=== PATIENT | male | born 1995 | race Caucasian/White ===

== ENCOUNTER 2017-11-18 15:00 | Emergency (ER) | payer SELFPAY ==
[2017-11-18 15:36] VITALS: BP 136/83; PULSE 71; TEMP 99; BMI 42.0
--- NOTE | 2017-11-18 15:46 | PDOC ---
History of Present Illness - General History Source: Patient Exam Limitations: No Limitations - History of Present Illness Initial Comments: 11/18/17 16:06 The patient is a 22 year old male, with no significant past medical history, who presents to the emergency department with lower back pain s/p mechanical fall yesterday. Patient reports he was walking outside yesterday, when he slipped on ice, and landed on his buttocks. Since the incident patient reports associated pain and bruising to the buttocks and left lower back. Patient reports he has been ambulating at baseline since fall. He denies any head trauma , LOC, changes in vision, headache, neck pain, dizziness, numbness or tingling. Patient reports difficulty sleeping secondary to pain. Patient has been taking Tylenol for the pain with minimal relief. He denies any flank pain, dysuria, hematuria, frequency, urgency, or urinary incontinence. He denies any abdominal pain, nausea, or vomiting. He denies any fever or chills. Allergies: NKDA Past Surgical History: None reported. Social History: Current everyday smoker. No ETOH or recreational drug use. <Ana David - Last Filed: 11/18/17 16:06> <Van Person - Last Filed: 11/18/17 17:06> - General Chief Complaint: Back Pain Stated Complaint: FELL Time Seen by Provider: 11/18/17 15:45 Past History <Ana David - Last Filed: 11/18/17 16:06> - Past Medical History COPD: No - Suicide/Smoking/Psychosocial Hx Smoking History: Current every day smoker Have you smoked in the past 12 months: Yes Number of Cigarettes Smoked Daily: 10 Information on smoking cessation initiated: Yes 'Breaking Loose' booklet given: 04/13/15 Hx Alcohol Use: Yes (OCCASIONAL) Drug/Substance Use Hx: No Substance Use Type: Alcohol <Van Person - Last Filed: 11/18/17 17:06> - Past Medical History Allergies/Adverse Reactions: Allergies Allergy/AdvReac Type Severity Reaction Status Date / Time No Known Allergies Allergy Verified 11/18/17 15:24 Home Medications: Ambulatory Orders NK [No Known Home Medication] 04/13/15 Review of Systems - Review of Systems Able to Perform ROS?: Yes Constitutional: No: Chills, Fever, Weakness HEENTM: No: Eye Pain, Blurred Vision, Recent change in vision Respiratory: No: Cough, Shortness of Breath, SOB with Exertion Cardiac (ROS): No: Chest Pain, Lightheadedness, Palpitations, Syncope ABD/GI: No: Constipated, Diarrhea, Nausea, Vomiting : No: Dysuria, Frequency, Flank Pain, Hematuria, Urgency Musculoskeletal: Yes: See HPI, Back Pain (lower back, with bruising. Left buttock pain.). No: Neck Pain Integumentary: Yes: Bruising (Left lower back and buttock). No: Erythema, Rash Neurological: No: Headache, Numbness, Paresthesia, Weakness, Unsteady Gait, Dizziness Hematologic/Lymphatic: No: Anemia, Easy Bleeding, Easy Bruising All Other Systems: Reviewed and Negative <Aj [email or web address] - Last Filed: 11/18/17 16:06> *Physical Exam - Vital Signs Last Vital Signs Temp Pulse Resp BP Pulse Ox 99.0 F 71 16 136/83 100 11/18/17 15:23 11/18/17 15:23 11/18/17 15:23 11/18/17 15:23 11/18/17 15:23 - Physical Exam General Appearance: Yes: Nourished, Appropriately Dressed. No: Apparent Distress HEENT: positive: EOMI, JULEE Neck: positive: Supple. negative: Tender Respiratory/Chest: positive: Lungs Clear, Normal Breath Sounds. negative: Chest Tender, Respiratory Distress Cardiovascular: positive: Regular Rhythm, Regular Rate Gastrointestinal/Abdominal: positive: Normal Bowel Sounds, Soft. negative: Tender, Organomegaly, Increased Bowel Sounds, Guarding, Rebound Lymphatic: negative: Adenopathy, Tenderness Musculoskeletal: positive: Other (Tenderness to the left lower back. Ecchymosis of left lower back and left buttock. No spinous process tenderness.). negative : Normal Inspection, CVA Tenderness, Decreased Range of Motion, Muscle Spasm, Vertebral Tenderness Extremity: positive: Normal Capillary Refill, Normal Range of Motion, Pelvis Stable. negative: Pedal Edema, Swelling, Erythema Integumentary: positive: Dry, Warm, Ecchymosis (Left lower back and buttock.). negative: Erythema Neurologic: positive: security specialist II-XII NML intact, Fully Oriented, Alert, Normal Mood/ Affect, Normal Response, Motor Strength 5/5. negative: Numbness <Ana David - Last Filed: 11/18/17 16:06> - Vital Signs Last Vital Signs Temp Pulse Resp BP Pulse Ox 99.0 F 71 16 136/83 100 11/18/17 15:23 11/18/17 15:23 11/18/17 15:23 11/18/17 15:23 11/18/17 15:23 <Van Person - Last Filed: 11/18/17 17:06> Progress Note - Progress Note Progress Note: X-ray lumbar spine no fracture seen Pt will be discharged home with follow up with PMD Ice, Motrin, rest IF worsen return to ER Pt is in agreement with plan <Van Person - Last Filed: 11/18/17 17:06> *DC/Admit/Observation/Transfer - Attestations Scribe Attestion: 11/18/17 16:08 Documentation prepared by Ana David, acting as medical administrator for Van Person MD. <Ana David - Last Filed: 11/18/17 16:06> - Discharge Dispostion Admit: No <Van Person - Last Filed: 11/18/17 17:06> Diagnosis at time of Disposition: Back contusion Qualifiers: Encounter type: initial encounter Laterality: left Qualified Code(s): S20.222A - Contusion of left back wall of thorax, initial encounter - Discharge Dispostion Disposition: HOME Condition at time of disposition: Good - Patient Instructions Printed Discharge Instructions: DI for Contusion Additional Instructions: Ice , Motrin, rest If worsen return to ER
== END 2017-11-18 17:11 | disposition home or self-care (01) ==
LOC: FER 15:00
DX: S20.222A Contusion of left back wall of thorax, initial encounter (principal); W00.0XXA Fall on same level due to ice and snow, initial encounter; Y93.89 Activity, other specified; Y92.410 Unspecified street and highway as the place of occurrence of the external cause; F17.210 Nicotine dependence, cigarettes, uncomplicated
CPT/HCPCS: 72100-TC-FY; 99282-25

== ENCOUNTER 2017-11-19 12:08 | Emergency (ER) | payer SELFPAY ==
[2017-11-19 12:21] VITALS: BP 127/74; PULSE 75; TEMP 98.1; BMI 42.0
[2017-11-19] MEDS ORDERED: KETOROLAC TROMETHAMINE 60 MG/2 ML VIAL IM ONE (13:12)
[2017-11-19] MEDS ORDERED: CYCLOBENZAPRINE HCL 10 MG TABLET (FP) PO ONE (13:12)
--- NOTE | 2017-11-19 13:16 | PDOC ---
History of Present Illness - General Chief Complaint: Injury Stated Complaint: FOLLOW UP FOR A FALL Time Seen by Provider: 11/19/17 12:12 - History of Present Illness Initial Comments: 11/19/17 13:52 Chief complaint: Pain left buttocks History of present illness: Patient slipped on ice yesterday, direct impact to left buttock on the edge of a step. Pain and bruising is present. Was seen in the emergency room, x-rays of the LS-spine were negative, he refused medication at that time. Returns to the ER with persistent pain. Review of systems: Denies radiation of pain to the legs, denies distal numbness tingling or weakness, denies bowel or bladder incontinence or retention Past medical history: Healthy female, no active medical or surgical problems Social/family history reviewed and noncontributory Physical exam: Alert oriented well-developed well-nourished cheerful and cooperative no acute distress. Afebrile, vital signs normal Head and neck atraumatic. ENT clear Chest clear. No chest wall deformity or point tenderness CV regular without murmur or gallop Abdomen benign Spine with normal lumbar lordosis, no point tenderness or inflammation of the vertebral bodies. Minor contusion noted over the left buttock. Straight leg raising negative. No distal sensory or motor deficits Impression: Contusion Plan: Rest, symptomatic treatment, and follow-up if no improvement. Patient fully ambulatory and in no significant distress upon discharge to follow-up as recommended with Dr. webb Past History - Past Medical History Allergies/Adverse Reactions: Allergies Allergy/AdvReac Type Severity Reaction Status Date / Time No Known Allergies Allergy Verified 11/18/17 15:24 Home Medications: Ambulatory Orders Cyclobenzaprine HCl [Flexeril] 10 mg PO TID #15 tablet 11/19/17 Ketorolac Tromethamine [Toradol] 10 mg PO Q6H #20 tablet 11/19/17 COPD: No - Suicide/Smoking/Psychosocial Hx Smoking History: Current every day smoker Have you smoked in the past 12 months: Yes Number of Cigarettes Smoked Daily: 2 Information on smoking cessation initiated: Yes 'Breaking Loose' booklet given: 11/18/17 Hx Alcohol Use: Yes (OCCASIONAL) Drug/Substance Use Hx: No Substance Use Type: None *Physical Exam - Vital Signs Last Vital Signs Temp Pulse Resp BP Pulse Ox 98.1 F 75 16 127/74 98 11/19/17 12:09 11/19/17 12:09 11/19/17 12:09 11/19/17 12:09 11/19/17 12:09 *DC/Admit/Observation/Transfer Diagnosis at time of Disposition: Back contusion Qualifiers: Encounter type: initial encounter Laterality: left Qualified Code(s): S20.222A - Contusion of left back wall of thorax, initial encounter - Discharge Dispostion Disposition: HOME Condition at time of disposition: Improved Admit: No - Prescriptions Prescriptions: Cyclobenzaprine HCl [Flexeril] 10 mg PO TID #15 tablet Ketorolac Tromethamine [Toradol] 10 mg PO Q6H #20 tablet - Referrals Referrals: Blue Webb MD [Staff Physician] - 1 week - Patient Instructions Printed Discharge Instructions: Contusion Additional Instructions: Rest, ice, medication as directed Avoid the sitting position as this will aggravate pain and prolong the discomfort - Post Discharge Activity Forms/Work/School Notes: Back to Work
[2017-11-19] MEDS ORDERED: KETOROLAC TROMETHAMINE 60 MG/2 ML VIAL ONE (13:28)
[2017-11-19] MEDS ORDERED: CYCLOBENZAPRINE HCL 10 MG TABLET (FP) ONE (13:29)
== END 2017-11-19 13:48 | disposition home or self-care (01) ==
LOC: FER 12:08
PROC: 3E0233Z Introduction of Anti-inflammatory into Muscle, Percutaneous Approach (ICD-10-PCS; principal; 2017-11-19)
DX: S20.222A Contusion of left back wall of thorax, initial encounter (principal); W00.0XXA Fall on same level due to ice and snow, initial encounter; Y92.410 Unspecified street and highway as the place of occurrence of the external cause
CPT/HCPCS: 99281-25